=== PATIENT | female | born 1970 | race African-American/Black ===

== ENCOUNTER 2016-11-06 05:09 | Inpatient (IN) | payer OTHER ==
[2016-11-01 11:50] VITALS: BMI 23.7
[~2016-11-06 05:09] MED LIST: ceFAZolin SODIUM 1 GM VIAL IVPB ONE
[2016-11-06] MEDS ORDERED: INFLUENZA VACCINE 45 MCG/0.5 ML (MDV 16-17) IM ONE (12:54)
[2016-11-06] MEDS ORDERED: ROPIVACAINE HCL 0.5% 30ML VIAL ONE (13:35)
[2016-11-06] MEDS ORDERED: MIDAZOLAM HCL 2 MG/2 ML SINGLE DOSE VIAL ONE (14:08)
[2016-11-06] MEDS ORDERED: ROCURONIUM BROMIDE 50 MG/5 ML VIAL ONE (14:32)
[2016-11-06] MEDS ORDERED: PROPOFOL 20 ML ONE (14:32)
[2016-11-06] MEDS ORDERED: ceFAZolin SODIUM 1 GM VIAL IVPB ONE (14:35)
[2016-11-06] MEDS ORDERED: ceFAZolin SODIUM 1 GM VIAL ONE (14:37)
[2016-11-06] MEDS ORDERED: DEXAMETHASONE SOD PHOSPHATE 4 MG/1 ML VIAL ONE (15:21)
[2016-11-06] MEDS ORDERED: GLYCOPYRROLATE 0.2 MG/1 ML VIAL ONE (15:36)
[2016-11-06] MEDS ORDERED: NEOSTIGMINE METHYLSULFATE 0.5 MG/ML - 10 ML MDV ONE (15:36)
[2016-11-06] MEDS ORDERED: ONDANSETRON 4 MG/2 ML VIAL IVPUSH PRN (16:07)
[2016-11-06] MEDS ORDERED: HYDROmorphone HCL CARPU-JECT 2 MG/1 ML DISP.SYRIN ONE (16:16)
[2016-11-06] MEDS: HYDROmorphone HCL CARPU-JECT 1 MG/1 ML DISP.SYRIN IVPUSH PRN ×4 (16:19→16:49)
[2016-11-06] MEDS ORDERED: LACTATED RINGERS SOLUTION 1,000 ML IV SCH (16:45)
[2016-11-06] MEDS: HYDROmorphone *PCA* 10MG/50ML DISP.SYRIN PCA SCH ×2 (16:55→22:01)
--- NOTE | 2016-11-06 17:43 | OP ---
DATE OF OPERATION: 11/06/2016 PREOPERATIVE DIAGNOSES: Cancer in situ of cervix, fibroid, and anemia. POSTOPERATIVE DIAGNOSES: Cancer in situ of cervix, fibroid, and anemia. SURGEON: Keyana Quijano MD [employer] SUPERVISOR: Rich Diego MD OPERATION: Laparotomy, total abdominal hysterectomy, and bilateral salpingo-oophorectomy. While patient was prepped and draped under general anesthesia, via Pfannenstiel incision abdominal cavity was entered layer by layer. Bowel was packed and uterus was pulled out and hysterectomy was in that manner both round ligaments were ligated and then both infundibulopelvics were, with the help of the suture ligature and number 0 Vicryl, other ligation was done. Then step by step, both right and left uterine arteries were ligated, and then uterosacral and cardinal ligaments were . Uterus, cervix and both ovaries and tubes--ovaries were removed on the basis of patient's request because patient insisted to remove the ovaries and tubes, and for that reason it was done also. During the surgery, Dr. Diego was helping and observing. After uterus and ovaries were removed and sent to Pathology, the vault of the vagina was closed in 2 layers. The other elements of the abdomen were evaluated. There was no pathological finding. Peritoneum was pulled down and peritoneum and fascia were closed with 0 Vicryl and skin was closed with V-Loc number 3. Estimated blood loss was 100 mL but this patient, because her hemoglobin was 9 and she had history of anemia, was advised to give her 1 unit of blood in recovery room. Patient tolerated the procedure, was sent to recovery room in good condition. Marita [id number]
[2016-11-06 20:07] LABS: MCH 22.3 pg (25.7-33.7); MCHC 30.5 g/dl (32.0-36.0); MEAN CELL VOLUME 72.9 fl (80-96); MEAN PLT VOLUME 7.9 fl (7.5-11.1); PLATELET COUNT 302 K/MM3 (134-434); RDW 19.8 % (11.6-15.6); WHITE BLOOD COUNT 14.8 K/mm3 (4.0-10.0)
[2016-11-06 21:39] LABS: ANISOCYTOSIS 1+; HYPOCHROMIA 1+; PLATELET ESTIMATE ADEQUATE (NORMAL); POLYCHROMASIA FEW
[2016-11-06] MEDS: CEFAZOLIN 1 GM/D5W 50 ML IVPB SCH (23:09)
[2016-11-06] MEDS: LACTATED RINGERS SOLUTION 1,000 ML IV SCH (23:11)
[2016-11-07] MEDS ORDERED: ONDANSETRON 4 MG/2 ML VIAL ONE (02:15)
[2016-11-07] MEDS: CEFAZOLIN 1 GM/D5W 50 ML IVPB SCH (06:20)
[2016-11-07] MEDS ORDERED: ONDANSETRON 4 MG/2 ML VIAL IVPB PRN (06:34)
[2016-11-07] MEDS: IBUPROFEN 800 MG/8 ML IJ IVPB PRN ×4 (06:52→22:35)
[2016-11-07] MEDS: LACTATED RINGERS SOLUTION 1,000 ML IV SCH ×2 (09:30→21:24)
[2016-11-07] MEDS ORDERED: VACCINE 60 MCG/0.5 ML (P/F DISP.SYRIN 16-17) IM ONE (10:00)
--- NOTE | 2016-11-07 11:26 | PN ---
Progress Note (short form) - Note Progress Note: Anesthesia Post op/Pain Pt seen and examined S:Alert and awake. Comfortable O: CBC, BMP 11/06/16 19:30 11/07/16 06:15 Vital Signs Temperature 99.8 F H 11/07/16 07:45 Pulse Rate 77 11/07/16 07:45 Respiratory Rate 18 11/07/16 07:45 Blood Pressure 131/73 11/07/16 07:45 O2 Sat by Pulse Oximetry (%) 97 11/07/16 07:45 A/P s/p Hysterectomy BSO uses ANTHROPOLOGY PROFESSOR but frequency low Advised to use ANTHROPOLOGY PROFESSOR as needed No apparent anesthesia related complications Bryson Sanchez MD
[2016-11-07] MEDS ORDERED: PCA PUMP KEY 1 EACH EACH ONE (12:09)
[2016-11-07] MEDS: SIMETHICONE 80 MG TAB.CHEW (FP) PO PRN (17:08)
[2016-11-08] MEDS: LACTATED RINGERS SOLUTION 1,000 ML IV SCH (06:38)
--- NOTE | 2016-11-08 08:36 | PN ---
Progress Note (short form) - Note Progress Note: Pot op day#2.Patient stable and has little pain for which she is on medication.CRIB CLERK was DC yesterday.No any anesthesia related problem.Patient DC from the anesthesia care.
[2016-11-08] MEDS: SIMETHICONE 80 MG TAB.CHEW (FP) PO PRN ×2 (08:44→17:05)
[2016-11-08] MEDS ORDERED: BISACODYL 10 MG SUPP.RECT PR ONE (09:00)
[2016-11-08] MEDS: ACETAMINOPHEN 325 MG TABLET (FP) PO PRN ×2 (10:48→17:02)
[2016-11-08] MEDS: IBUPROFEN 600 MG TABLET (FP) PO PRN ×2 (10:48→17:03)
[2016-11-08] MEDS ORDERED: POLYETHYLENE GLYCOL 3350 119 GM BTL PO ONE (15:40)
[2016-11-08 16:40] VITALS: PULSE 64
[2016-11-08 18:32] VITALS: BP 126/64; TEMP 99
--- NOTE | 2016-11-09 15:11 | PATH ---
Surgical Pathology Report Patient Name: SHANNON ASHLEY [facility]. Rec. #: [id number] /Age/Gender: 1970 (Age: 45) / F Account: [id number] Location: [facility] OBS/NURSING TECHN Taken: 11/06/2016 Received: 11/07/2016 Reported: 11/09/2016 Physicians: Marita Hernandez Specimen(s) Received A: UTERUS, CERVIX, BILATERAL FALLOPIAN TUBES & OVARIES B: VAGINAL MARGIN Clinical History Carcinoma in situ of cervix/endometrium, fibroids Final Diagnosis A. UTERUS, CERVIX, BILATERAL FALLOPIAN TUBES AND OVARIES, TOTAL ABDOMINAL HYSTERECTOMY, BILATERAL SALPINGO-OOPHORECTOMY: CERVIX: HIGH GRADE SQUAMOUS INTRAEPITHELIAL LESION (CERVICAL INTRAEPITHELIAL NEOPLASIA 3 /ALYSA 3 /CARCINOMA IN SITU) WITH GLANDULAR INVOLVEMENTIN 12-3:00 QUADRANT; ECTOCERVICAL RESECTION MARGIN IS NEGATIVE FOR ALYSA 3. ENDOMETRIUM: DYSSYNCHRONOUS AND FOCALLY DISORDERD PROLIFERATIVE WITH FOCAL STROMAL BREAKDOWN CHANGES. MYOMETRIUM: EXTENSIVE ADENOMYOSIS; LEIOMYOMATA (LARGEST 1.1 CM). UTERINE SEROSA: WITHOUT SIGNIFICANT PATHOLOGIC CHANGES. RIGHT AND LEFT PARAMETRIA: FOCAL INVOLVEMENT BY ENDOMETRIOSIS OF LEFT PRAMETRIUM. LEFT FALLOPIAN TUBE: FOCAL TUBO-OVARIAN ADHESIONS. LEFT OVARY: HEMORRHAGIC CORPUS LUTEUM CYST; TUBO-OVARIAN ADHESIONS. RIGHT FALLOPIAN TUBE: TUBO-OVARIAN ADHESIONS. RIGHT OVARY: HEMORRHAGIC CORPUS LUTEUM CYST; TUBO-OVARIAN ADHESIONS. Comment: Carcinoma in situ is seen in 12-3:00 quadrant with glandular involvement. PAS stain demonstrates preserved basement membranes around foci of dysplasia; no invasion is identified. B. VAGINAL MARGIN, EXCISION: BENIGN SQUAMOUS MUCOSA; NO DYSPLASIA IDENTIFIED. Note: The case was discussed with Dr. Quijano on 11/08/16. Electronically Signed Issa Wilks M.D. Gross Description A. Received in formalin, labeled "uterus, cervix, bilateral fallopian tubes/ovaries" is a 214 g hysterectomy specimen including a uterus, attached cervix and bilateral attached fallopian tubes and ovaries. The specimen measures 12 cm from superior to inferior, 7.5 cm from left to right and 6.5 cm from anterior to posterior. The serosa is valerio-pink and smooth. The attached cervix measures 2.8 cm in length and averages 2.6 cm in diameter. The ectocervix is pink-valerio, smooth and glistening. The endocervix is grossly unremarkable. The endometrial cavity measures 4.5 cm in length and 2.5 cm from cornu to cornu. The endometrium is valerio-red and measures up to 0.3 cm in thickness. There are multiple intramural nodules present, measuring up to 1.1 cm in greatest dimension. The cut surface of the nodules is valerio, firm to rubbery and displays whorled architecture. No areas of hemorrhage or necrosis are identified. The remaining myometrium is valerio-pink and measures up to 3.1 cm in thickness. The left fimbriated fallopian tube measures 5 cm in length and appears previously ligated. The outer surface is hernández purple with tubal ovarian adhesions. Sectioning reveals an unremarkable lumen. The left ovary measures 3.5 x 2.4 x 2.0 cm. The outer surface is hernández-purple. Sectioning reveals a 2.8 cm greatest dimension hemorrhagic cyst. The remaining ovarian parenchyma is valerio and unremarkable. The right fimbriated fallopian tube measures 5.5 cm in length and appears previously ligated. The outer surface is hernández-purple with tubal ovarian adhesions. Sectioning reveals an unremarkable lumen. The right ovary measures 3.4 x 2.5 x 2.0 cm. The outer surface is hernández-purple. Sectioning reveals a 2.7 cm in greatest dimension focally hemorrhagic cyst. The remaining ovarian parenchyma is unremarkable. Compensation Expert sections are submitted in 29 cassettes as follows: 5-20-ujdfgjnw submitted cervix sequentially from 1:00 to 12:00; 13-anterior lower uterine segment; 14-posterior lower uterine segment; 15-left parametrium; 16-right parametrium; 35-06-lzyeomhz endomyometrium; 10-87-dvzjjamxq endomyometrium; 21-intramural nodules; 22-left fallopian tube fimbria; 52-jfkah-hjxrclgn of left fallopian tube; 24-left ovarian cyst; 25-left ovary; 26-right fallopian tube fimbria; 24-snbcc-fmjmcihs of right fallopian tube; 28-right ovarian cyst; 29-right ovary. B. Received in formalin, labeled "vaginal margin" is a 1.7 x 0.8 x 0.6 cm valerio, irregular, unoriented portion of soft tissue. The specimen is inked green and serially sectioned. The specimen is entirely submitted in 2 cassettes. DL/11/07/2016 saudi11/07/2016
== END 2016-11-08 18:39 | disposition home or self-care (01) | DRG 741 ==
LOC: JSAMEDAYSX 05:09 → J3W 18:00
PROVIDERS: ADMIT Obstetrics & Gynecology; ATTEND Obstetrics & Gynecology
PROC: 0UTC0ZZ Resection of Cervix, Open Approach (ICD-10-PCS; 2016-11-06)
PROC: 0UT70ZZ Resection of Bilateral Fallopian Tubes, Open Approach (ICD-10-PCS; 2016-11-06)
PROC: 0UT20ZZ Resection of Bilateral Ovaries, Open Approach (ICD-10-PCS; 2016-11-06)
PROC: 30233N1 Transfusion of Nonautologous Red Blood Cells into Peripheral Vein, Percutaneous Approach (ICD-10-PCS; 2016-11-06)
PROC: 0UT90ZZ Resection of Uterus, Open Approach (ICD-10-PCS; principal; 2016-11-06 14:00)
DX: D06.9 Carcinoma in situ of cervix, unspecified (principal); D25.9 Leiomyoma of uterus, unspecified; D64.9 Anemia, unspecified
CPT/HCPCS: 36415; 36430; 80051; 84703; 85027; 88305-TC; 88309-TC; 94010; 94760; P9038; P9058

== ENCOUNTER 2017-05-15 11:49 | Emergency (ER) | payer OTHER ==
[2017-05-15 11:56] VITALS: TEMP 98.1; BMI 31.4
--- NOTE | 2017-05-15 12:39 | PDOC ---
History of Present Illness - History of Present Illness Initial Comments: 05/15/17 15:32 The patient is a 46 year old female, with a significant past medical history of ""slowed speech"" (x2 months), who presents to the emergency department with missing gaps of memory for 2 weeks. She states she was driving to work 2 weeks ago when she got off at the exit and ended up in a different town, however, can not recall anything in between. She reports putting her work address into the GPS and getting to work. She states she was able to perform her work tasks, but states a second incident occurred on her way home. She reports having an appointment with her PCP today, however, he was not in the office. She states she was evaluated by Dr. Banegas in the office and referred to the ED. She reports having an MRI about 2 months ago, as per Dr. Rendon referral, for change in speech. The patient states she has been ""putting things away at home and not remembering where."" She denies chest pain, shortness of breath, headache and dizziness. She denies fever, chills, nausea, vomit, diarrhea and constipation. She denies dysuria, frequency, urgency and hematuria. Pt denies any focal weakness, numbness/ tingling, vision changes, neck pain, back pain. Allergies: NKDA PCP - Dr. Kris Brower <Carolyn Velasquez - Last Filed: 05/15/17 16:20> <Bruce Gallegos - Last Filed: 05/17/17 07:44> - General Chief Complaint: Altered Mental Status Stated Complaint: (PCP SENT) Time Seen by Provider: 05/15/17 12:08 Past History <Carolyn Velasquez - Last Filed: 05/15/17 16:20> - Past Medical History Anemia: Yes Asthma: No Cancer: Yes (CERVICAL/ENDOMETRIAL) Cardiac Disorders: No CVA: No COPD: No CHF: No Dementia: No Diabetes: No GI Disorders: Yes (IBS) Disorders: No HTN: No Hypercholesterolemia: No Liver Disease: No Seizures: No Thyroid Disease: No - Surgical History Abdominal Surgery: Yes (tubal ligation) - Immunization History Td Vaccination: (unknown) Immunization Up to Date: Yes - Psycho/Social/Smoking Cessation Hx Anxiety: No Suicidal Ideation: No Smoking Status: No Smoking History: Never smoked Years of Tobacco Use: 0 Number of Cigarettes Smoked Daily: 0 Cigars Per Day: 0 Hx Alcohol Use: No Drug/Substance Use Hx: No Substance Use Type: None Hx Substance Use Treatment: No <Bruce Gallegos - Last Filed: 05/17/17 07:44> - Past Medical History Allergies/Adverse Reactions: Allergies Allergy/AdvReac Type Severity Reaction Status Date / Time No Known Drug Allergies Allergy Verified 05/15/17 11:57 Home Medications: Ambulatory Orders Ferrous Sulfate 325 mg PO DAILY 11/01/16 Multivitamin [Poly-Vitamin] 1 tab PO DAILY 11/01/16 Review of Systems - Review of Systems Able to Perform ROS?: Yes Comments:: 05/15/17 15:32 CONSTITUTIONAL: No reported: Fever, Chills, Diaphoresis, Generalized Weakness, Malaise, Loss of Appetite HEENT: No reported: Rhinorrhea, Nasal Congestion, Throat Pain, Throat Swelling, Difficulty Swallowing, Mouth Swelling, Ear Pain, Eye Pain, Visual Changes CARDIOVASCULAR: No reported: Chest Pain, Syncope, Palpitations, Irregular Heart Rate, Lightheadedness, Peripheral Edema RESPIRATORY: No reported: Cough, Shortness of Breath, SOB with Exertion, Orthopnea, Wheezing , Stridor, Hemoptysis GASTROINTESTINAL: No reported: Abdominal pain, Abdominal Distension, Nausea, Vomiting, Diarrhea, Constipation, Melena, Hematochezia GENITOURINARY: No reported: Dysuria, Frequency, Urgency, Hesitancy, Flank Pain, Genital Pain MUSCULOSKELETAL: No reported: Myalgia, Arthralgia, Joint Swelling, Back pain, Neck Pain SKIN: No reported: Rash, Itching, Pallor HEMEATOLOGIC/IMMUNOLOGIC: No reported: Easy Bleeding, Easy Bruising, Lymphadenopathy, Frequent infections ENDOCRINE: No reported: Unexplained Weight Gain, Unexplained Weight Loss, Heat Intolerance , Cold Intolerance NEUROLOGIC: (+) memory loss and dizziness. No reported: Headache, Focal Weakness, Paresthesias, Lightheadedness, Unsteady Gait, Seizure, Incontinence PSYCHIATRIC: No reported: Anxiety, Depression <Carolyn Velasquez - Last Filed: 05/15/17 16:20> *Physical Exam - Vital Signs Last Vital Signs Temp Pulse Resp BP Pulse Ox 98.1 F 72 20 128/91 98 05/15/17 11:52 05/15/17 11:52 05/15/17 11:52 05/15/17 11:52 05/15/17 11:52 - Physical Exam Comments: 05/15/17 15:32 GENERAL: The patient is awake, alert, and fully oriented, Nontoxic - in no acute distress. HEAD: Normocephalic, atraumatic. EYES: extraocular movements intact, sclera anicteric, conjunctiva clear. ENT: Normal voice, Moist mucous membranes. NECK: Normal range of motion, supple LUNGS: Breath sounds equal, clear to auscultation bilaterally. No wheezes, no rhonchi, no rales. HEART: Regular rate and rhythm, without murmur, rub or gallop. ABDOMEN: Soft, nontender, normoactive bowel sounds. No guarding, no rebound.No CVA tenderness EXTREMITIES: Normal range of motion, no edema. No clubbing or cyanosis. No cords, erythema, or tenderness. PSYCH: Normal mood, flat affect. SKIN: Warm, Dry, normal turgor, NEURO: Mental status: The patient is oriented x3. Cranial nerves: Cranial nerves II through XII are intact Motor: The upper extremities are 5 over 5 in all muscle groups. The lower extremities are 5 over 5 in all muscle groups. Negative pronator drift Sensation: Sensation is intact to light touch throughout. romberg negative Cerebellar: Bszwxv-abahys-vdpm is normal in both upper extremities. Gait: Normal. <Carolyn Velasquez - Last Filed: 05/15/17 16:20> - Vital Signs Last Vital Signs Temp Pulse Resp BP Pulse Ox 98.1 F 72 20 128/91 98 05/15/17 11:52 05/15/17 11:52 05/15/17 11:52 05/15/17 11:52 05/15/17 11:52 <Bruce Gallegos - Last Filed: 05/17/17 07:44> Heart Score/ECG Review - ECG Impressions Comment:: 05/15/17 17:47 Twelve-lead EKG was performed and reviewed by me. There is normal sinus rhythm with a normal rate, rate of 68. The axis is normal. The intervals are normal. There is normal R wave progression There are no ST or T wave abnormalities. Impression: Normal twelve-lead EKG <Bruce Gallegos - Last Filed: 05/17/17 07:44> ED Treatment Course - LABORATORY CBC & Chemistry Diagram: 05/15/17 12:55 05/15/17 12:54 - ADDITIONAL ORDERS Additional order review: Laboratory Results 05/15/17 12:54 Sodium 139 Potassium 4.5 Chloride 107 Carbon Dioxide 27 Anion Gap 5 L BUN 14 D Creatinine 0.7 Creat Clearance w eGFR > 60 Random Glucose 83 Calcium 10.0 Total Bilirubin 0.6 AST 14 L ALT 11 L Alkaline Phosphatase 90 D Total Protein 8.2 Albumin 3.7 05/15/17 12:55 RBC 4.78 MCV 80.8 MCHC 31.9 L RDW 15.5 D MPV 8.7 D Neutrophils % 60.6 Lymphocytes % 30.4 Monocytes % 6.4 Eosinophils % 1.7 Basophils % 0.9 <Carolyn Velasquez - Last Filed: 05/15/17 16:20> - LABORATORY CBC & Chemistry Diagram: 05/15/17 12:55 05/15/17 12:54 <Bruce Gallegos - Last Filed: 05/17/17 07:44> Medical Decision Making - Medical Decision Making 05/15/17 15:33 Dr. Bijal Banegas was paged at the office at 14:55 requesting a call back for doctor to doctor consult. Dr. Banegas was paged a second time at 15:10. Dr. Banegas returned the call at 15:30 and the patient's case was discussed. 05/15/17 16:10 Patient has an outstanding appointment with Dr. Yoon. In an attempt to expedite her follow-up appointment, the office was called, however, the office is unable to reschedule the appointment sooner. Dr. Osborn, Neurologist on-call, was called at 16:20 and the patient's case was discussed. Dr. Osborn agrees to see the patient in the office on Saturday, , at 2:00PM. <Carolyn Velasquez - Last Filed: 05/15/17 16:20> - Medical Decision Making 05/15/17 13:05 46y F presenting with 2 week period of amnesia/poor short term memory, prior recent history of speech problem and received an MRI as an outpatient for a workup. pt denies any focal neurologic complaints including headache, dizziness , vision changes, numbness/tingling/weakness, neck pain, back pain, chest pain, n/v. on exam the pt seems to have a flat affect and otherwise intact neuro exam beside being slow to answer basic questions. will obtain basic blood work and will discuss with PMD possibel TGA? neuro consult 05/15/17 15:03 discussed with the pts son, states the pt ahs been slow in speaking for atleast a year, since she broke up with her , but her memory problems seem new, when he saw her in march, her memory seemed normal. also states pt had a neuro appointment yet but couldnt make it so was cancelled and rescheduled for may. pts labs unremarkable here will d/w PMD will see if we can get an expedited neuro fu 05/15/17 16:[address] osborn will see the pt on saturday at 2pm return precautions were discussed I discussed the physical exam findings, ancillary test results and final diagnoses with the patient. I answered all of the patient's questions. The patient was satisfied with the care received and felt comfortable with the discharge plan and treatment plan. The patient will call their primary care physician within 24 hours to arrange follow-up and will return to the Emergency Department with any new, persistent or worsening symptoms. <Bruce Gallegos - Last Filed: 05/17/17 07:44> *DC/Admit/Observation/Transfer - Attestations Scribe Attestion: 05/15/17 15:33 Documentation prepared by Carolyn Velasquez, acting as medical education coordinator for Bruce Gallegos MD <Carolyn Velasquez - Last Filed: 05/15/17 16:20> - Discharge Dispostion Admit: No <Bruce Gallegos - Last Filed: 05/17/17 07:44> Diagnosis at time of Disposition: Memory changes - Discharge Dispostion Disposition: HOME Condition at time of disposition: Improved - Referrals Referrals: Kris Brower MD [Primary Care Provider] - Mike Osborn MD [Staff Physician] - - Patient Instructions Printed Discharge Instructions: DI for Altered Mental Status Additional Instructions: Return to the emergency department immediately with ANY new, persistent or worsening symptoms. You MUST call and follow up with Dr. Watkins on Saturday at 2pm further evaluation of your symptoms. Results were discussed with you. Please make sure your doctor reviews the results of your emergency evaluation. Print Language: TUVALUAN
[2017-05-15 13:06] LABS: BASOPHIL 0.9 % (0-2.0); EOSINOPHIL 1.7 % (0-4.5); MCH 25.8 pg (25.7-33.7); MCHC 31.9 g/dl (32.0-36.0); MEAN CELL VOLUME 80.8 fl (80-96); MEAN PLT VOLUME 8.7 fl (7.5-11.1); NEUTROPHILS 60.6 % (42.8-82.8); PLATELET COUNT 262 K/MM3 (134-434); RDW 15.5 % (11.6-15.6); WHITE BLOOD COUNT 5.7 K/mm3 (4.0-10.0)
[2017-05-15 13:33] LABS: ALBUMIN 3.7 g/dl (3.4-5.0); ALK PHOS 90 U/L (45-117); ANION GAP 5 (8-16); BILIRUBIN,TOTAL 0.6 mg/dL (0.2-1.0); CO2 27 mmol/L (21-32); CREATININE 0.7 mg/dL (0.55-1.02); GLUCOSE,RANDOM 83 mg/dL (74-106); SGOT/AST 14 U/L (15-37); SGPT/ALT 11 U/L (12-78); TOT PROT 8.2 g/dl (6.4-8.2)
[2017-05-15 15:36] LABS: URINE APPEARANCE CLEAR; URINE BILIRUBIN NEGATIVE (NEGATIVE); URINE BLOOD 1+ (NEGATIVE); URINE COLOR STRAW; URINE GLUCOSE (UA) NEGATIVE (NEGATIVE); URINE KETONE NEGATIVE (NEGATIVE); URINE LEUK ESTERASE NEGATIVE (NEGATIVE); URINE NITRITE NEGATIVE (NEGATIVE); URINE PROTEIN NEGATIVE (NEGATIVE); URINE UROBILINOGEN NEGATIVE mg/dL (0.2-1.0)
[2017-05-15 15:49] LABS: URINE RBC <1 /hpf (0-3); URINE WBC 2 /hpf (3-5)
[2017-05-15 16:07] LABS: URINE MARIJUANA THC NEGATIVE ng/ml (CUTOFF=50)
[2017-05-15 16:50] VITALS: BP 140/86; PULSE 66
--- NOTE | 2017-05-16 16:32 | EKG ---
Test Reason : Blood Pressure : / mmHG Vent. Rate : 063 BPM Atrial Rate : 063 BPM P-R Int : 188 ms QRS Dur : 080 ms QT Int : 394 ms P-R-T Axes : 046 013 038 degrees QTc Int : 403 ms NORMAL SINUS RHYTHM NORMAL ECG WHEN COMPARED WITH ECG OF 29-JAN-2012 23:17, QT HAS SHORTENED Confirmed by TRUNG DUNCAN MD ([id number]) on 05/16/2017 4:31:52 PM Referred By: Confirmed By:TRUNG DUNCAN MD
== END 2017-05-15 16:51 | disposition home or self-care (01) ==
LOC: JER 11:49
DX: R41.3 Other amnesia (principal); Z85.41 Personal history of malignant neoplasm of cervix uteri; K58.9 Irritable bowel syndrome, unspecified
CPT/HCPCS: 36415; 70450-TC; 80053; 80307; 81003; 81015; 85025; 93005; 93010; 99284-25

== ENCOUNTER 2018-07-26 17:31 | Emergency (ER) | payer OTHER ==
[2018-07-26 17:36] VITALS: BP 135/86; PULSE 72; TEMP 98.7; BMI 31.4
[2018-07-26] MEDS ORDERED: ONDANSETRON 4 MG TABLET PO ONE (18:01)
[2018-07-26] MEDS ORDERED: MECLIZINE HCL 25 MG TABLET (FP) PO ONE (18:01)
--- NOTE | 2018-07-26 18:06 | PDOC ---
History of Present Illness - General Chief Complaint: Lightheaded Stated Complaint: Lightheaded Time Seen by Provider: 07/26/18 17:49 - History of Present Illness Initial Comments: 07/26/18 18:00 47 yo F with no significant pmh who p/w dizziness. Patient reports 2 weeks of worsening "spinning sensation." Patient reports multiple, unpredictable episodes of transient spinning when at movement. Symptoms resolve with rest. Sensation of moving forward, when parked at red stop lights, and sensation of room spinning when moving head. Nausea and vomiting x 2 yesterday. Absent hematemesis. Symptoms usually resolve with rest. Denies h/o head trauma, CVA/ TIA. Has h/o vertigo treated with Meclizine in past. Patient denies VEGA, vision change, hearing loss, tinnitus, F,C, cough, CP, SOB, urinary complaints, hematuria, BPR, abdominal pain, diarrhea, constipation, lightheadedness, weakness, sensory changes. PMHx: as noted above ROS: as noted SHx: Denies Etoh, tobacco, IVDA Allergies: NKDA. Past History - Past Medical History Allergies/Adverse Reactions: Allergies Allergy/AdvReac Type Severity Reaction Status Date / Time No Known Drug Allergies Allergy Verified 07/26/18 17:33 Home Medications: Ambulatory Orders Multivitamin [Poly-Vitamin] 1 tab PO DAILY 11/01/16 Meclizine HCl 25 mg PO PRN PRN 30 Days #30 tab.chew MDD 2 tab 07/26/18 Anemia: Yes Asthma: No Cancer: Yes (CERVICAL/ENDOMETRIAL) Cardiac Disorders: No CVA: No COPD: No CHF: No DVT: No Dementia: No Diabetes: No GI Disorders: Yes (IBS) Disorders: No HTN: No Hypercholesterolemia: No Liver Disease: No Seizures: No Thyroid Disease: No - Surgical History Abdominal Surgery: Yes (tubal ligation) - Immunization History Td Vaccination: (unknown) Immunization Up to Date: Yes - Suicide/Smoking/Psychosocial Hx Smoking Status: No Smoking History: Never smoked Years of Tobacco Use: 0 Number of Cigarettes Smoked Daily: 0 Cigars Per Day: 0 Information on smoking cessation initiated: No Hx Alcohol Use: No Drug/Substance Use Hx: No Substance Use Type: None Hx Substance Use Treatment: No Cardiac Specific PMH - Complaint Specific PMHX Pacemaker: No Review of Systems - Review of Systems Comments:: 07/26/18 18:09 GENERAL/CONSTITUTIONAL: No fever or chills. No weakness. HEAD, EYES, EARS, NOSE AND THROAT: No change in vision. No ear pain or discharge. No sore throat. CARDIOVASCULAR: No chest pain or shortness of breath RESPIRATORY: No cough, wheezing, or hemoptysis. GASTROINTESTINAL: No nausea, vomiting, diarrhea or constipation. GENITOURINARY: No dysuria, frequency, or change in urination. MUSCULOSKELETAL: No joint or muscle swelling or pain. No neck or back pain. SKIN: No rash NEUROLOGIC: + Vertigo. No headache, loss of consciousness, or change in strength /sensation. ENDOCRINE: No increased thirst. No abnormal weight change HEMATOLOGIC/LYMPHATIC: No anemia, easy bleeding, or history of blood clots. ALLERGIC/IMMUNOLOGIC: No hives or skin allergy. *Physical Exam - Vital Signs Last Vital Signs Temp Pulse Resp BP Pulse Ox 98.7 F 72 18 135/86 100 07/26/18 17:33 07/26/18 17:33 07/26/18 17:33 07/26/18 17:33 07/26/18 17:33 - Physical Exam Comments: 07/26/18 18:10 GENERAL: Awake, alert, and fully oriented, in no acute distress HEAD: No signs of trauma, normocephalic, atraumatic EYES: PERRLA, EOMI, sclera anicteric, conjunctiva clear ENT: Auricles nml to visualization. Hearing grossly normal, nares patent, oropharynx clear without exudates. Moist mucosa NECK: Normal ROM, supple, no lymphadenopathy, JVD, or masses LUNGS: No distress, speaks full sentences, clear to auscultation bilaterally HEART: Regular rate and rhythm, normal S1 and S2, no murmurs, rubs or gallops, peripheral pulses normal and equal bilaterally. EXTREMITIES : Normal inspection, Normal range of motion, no edema. No clubbing or cyanosis. NEUROLOGICAL: Cranial nerves II through XII grossly intact. Normal speech, normal gait, no focal sensorimotor deficits. Neg dysmetria on FTN, HTS. Normal YOSVANY. Neg nystagmus. SKIN: Warm, Dry, normal turgor, no rashes or lesions noted Medical Decision Making - Medical Decision Making 07/26/18 18:06 47 yo F with no significant pmh who p/w dizziness. Dizziness described as transient spinning sensation, improved with rest. VSS, AF., A&OX3. Absent neuro deficits on physical exam. Absent nystagmus. Probable BPPV. Likely peripheral vs. central vertigo. Low suspicion menieres dz., otitis, CVA/TIA, labrynthitis. Ed Course: Meclibabar, Yamelfran 07/26/18 18:11 Meclizine, Zofran sent to pharmacy. 07/26/18 18:14 *DC/Admit/Observation/Transfer Diagnosis at time of Disposition: Vertigo - Discharge Dispostion Condition at time of disposition: Stable Decision to Admit order: No - Referrals Referrals: Kris Brower MD [Primary Care Provider] - Mike Gillespie MD [Staff Physician] - - Patient Instructions Printed Discharge Instructions: DI for Vertigo Additional Instructions: Please return to the emergency department with any new or worsening symptoms or concerns. Please follow up with your primary care physician within 72 hours. Please take Meclizine as needed for symptoms. Follow up with Neurology within one week. - Post Discharge Activity Forms/Work/School Notes: Back to Work - Attestations Physician Attestion: 07/26/18 18:16 I attest to the information provided in this note.
--- NOTE | 2018-07-26 18:15 | PDOC ---
Attending Attestation - Resident Resident Name: AntMikeHaim - ED Attending Attestation I have performed the following: I have examined & evaluated the patient, The case was reviewed & discussed with the resident, I agree w/resident's findings & plan, Exceptions are as noted - HPI HPI: 07/26/18 18:12 47 yo F with no significant pmh who p/w dizziness. Patient reports 2 weeks of worsening vertigo. Patient reports multiple, unpredictable episodes of transient spinning when at movement. Symptoms resolve with rest. Denies h/o head trauma, CVA/TIA. Has h/o vertigo treated with Meclizine in past. Patient denies VEGA, vision change, hearing loss, tinnitus - Physicial Exam PE: 07/26/18 18:13 GENERAL: The patient is in no acute distress. HEAD: Normal EYES: PERRLA, EOMI, no nystagmus LUNGS: Breath sounds equal, clear to auscultation bilaterally. No wheezes, and no crackles. HEART:Regular rate and rhythm, normal S1 and S2 without murmur, rub or gallop. ABDOMEN: Soft, nontender, EXTREMITIES: Normal range of motion NEUROLOGICAL: Cranial nerves II through XII grossly intact. Normal speech. No focal neurological deficits. - Medical Decision Making 07/26/18 18:14 47 yo F presenting to the ER with BPPV Neurological examination nml Pt has had these symptoms in the past, has not followed up Ran out of meclizine Will give meclizine now Will re assess D/c with meclizine
[2018-07-26] MEDS ORDERED: MECLIZINE HCL 25 MG TABLET (FP) ONE (18:28)
[2018-07-26] MEDS ORDERED: ONDANSETRON *ODT* 4 MG TABLET ONE (18:29)
== END 2018-07-26 18:33 | disposition home or self-care (01) ==
LOC: JER 17:31
DX: R42 Dizziness and giddiness (principal)
CPT/HCPCS: 99282-25

== ENCOUNTER 2018-12-17 14:21 | Emergency (ER) | payer OTHER ==
[2018-12-17 14:35] VITALS: BMI 30.7
[2018-12-17] MEDS ORDERED: ACETAMINOPHEN 1000 MG/100 ML VIAL (NON FORMULARY) IVPB ONE (16:37)
[2018-12-17 17:00] LABS: BASO % 0.3 % (0-2.0); EOS % 0.7 % (0-4.5); HEMATOCRIT 35.5 % (32.4-45.2); HEMOGLOBIN 12.2 GM/dL (10.7-15.3); LYMPH % 25.2 % (8-40); MCH 27.8 pg (25.7-33.7); MCHC 34.2 g/dl (32.0-36.0); MEAN PLT VOLUME 8.7 fl (7.5-11.1); MONO % 5.2 % (3.8-10.2); NEUT % 68.6 % (42.8-82.8); PLATELET COUNT 238 K/MM3 (134-434); RBC 4.39 M/mm3 (3.60-5.2); RDW 14.9 % (11.6-15.6)
[2018-12-17] MEDS ORDERED: ACETAMINOPHEN INJECTION 100 ML IVPB ONE (17:17)
--- NOTE | 2018-12-17 17:20 | PDOC ---
History of Present Illness - General Chief Complaint: Palpitations Stated Complaint: SICK Time Seen by Provider: 12/17/18 16:08 - History of Present Illness Initial Comments: 48yo F with PMH of hysterectomy presenting with palpitations. Patient states this has been going on since September. She describes it as her "heart beating very quickly." While there are some days when it does not occur, it has happened more frequently such that she decided to come in and it has occurred twice today lasting between 5-10 minutes for each episode. Patient does not know what makes it better or worse and does not note an obvious correlation with exertion. She also reports right arm pain extending from her upper arm to her shoulder that started on Saturday. Denies injury to that area or heavy lifting. Pain is exacerbated with movement of the arm such as lifting it above her shoulder. No diaphoresis, nausea, or vomiting. No personal or family history of SD. She has never seen a manager council. No hemoptysis, no recent surgical history, no recent immobilization, no hormone use, no history of DVT or PE. No fevers , chills, or abdominal pain. Past History - Past Medical History Allergies/Adverse Reactions: Allergies Allergy/AdvReac Type Severity Reaction Status Date / Time No Known Drug Allergies Allergy Verified 12/17/18 14:31 Home Medications: Ambulatory Orders NK [No Known Home Medication] 12/17/18 Anemia: Yes Asthma: No Cancer: Yes (CERVICAL/ENDOMETRIAL) Cardiac Disorders: No CVA: No COPD: No CHF: No DVT: No Dementia: No Diabetes: No GI Disorders: Yes (IBS) Disorders: No HTN: No Hypercholesterolemia: No Liver Disease: No Seizures: No Thyroid Disease: No - Surgical History Abdominal Surgery: Yes (tubal ligation) - Immunization History Td Vaccination: (unknown) Immunization Up to Date: Yes - Suicide/Smoking/Psychosocial Hx Smoking Status: No Smoking History: Never smoked Years of Tobacco Use: 0 Number of Cigarettes Smoked Daily: 0 Cigars Per Day: 0 Hx Alcohol Use: Yes Drug/Substance Use Hx: No Substance Use Type: None Hx Substance Use Treatment: No Review of Systems - Review of Systems Comments:: Constitutional: no fever, no chills HEENT: no throat pain, no dysphagia Cardiovascular: no chest pain, +palpitations Respiratory: no cough, no shortness of breath Gastrointestinal: no abdominal pain, no nausea Genitourinary: no dysuria, no frequency Musculoskeletal: no decreased mobility, +R. arm pain Skin: no rash, no itching Neurologic: no headache, no dizziness *Physical Exam - Vital Signs Last Vital Signs Temp Pulse Resp BP Pulse Ox 97.8 F 83 18 141/73 98 12/17/18 14:31 12/17/18 14:31 12/17/18 14:31 12/17/18 14:31 12/17/18 14:31 - Physical Exam Comments: General: Awake, alert, and fully oriented, in no acute distress Head: No signs of trauma Eyes: EOMI, sclera anicteric ENT: Moist mucus membranes Neck: Normal ROM, supple Lungs: Lungs clear, Normal breath sounds Cardio: Regular rate and rhythm, S1 and S2 present, no murmurs/rubs/gallops Abdomen: Soft, nontender. No guarding, no rebound, no masses Extremities: Normal range of motion, Distal pulses present, Tender to palpation of R. arm extending to shoulder, pain reproduced with movement of RUE above head , no rashes or lesions noted SKIN: Warm, Dry, normal turgor Neurologic: Cranial nerves II through XII grossly intact. Normal speech Moderate Sedation - Procedure Monitoring Vital Signs: Procedure Monitoring Vital Signs Temperature 97.8 F 12/17/18 14:31 Pulse Rate 83 12/17/18 14:31 Respiratory Rate 18 12/17/18 14:31 Blood Pressure 141/73 12/17/18 14:31 O2 Sat by Pulse Oximetry (%) 98 12/17/18 14:31 ED Treatment Course - LABORATORY CBC & Chemistry Diagram: 12/17/18 16:39 12/17/18 16:39 - RADIOLOGY Radiology Studies Ordered: Category Date Time Status CHEST PA & LAT [RAD] Stat Radiology 12/17/18 16:37 Ordered Medical Decision Making - Medical Decision Making 48yo F with PMH of hysterectomy presenting with palpitations. DDX including but not limited to thyroid disorder, ACS, PE, anemia, arrhythmia, electrolyte abnormality First tpn negative TSH within normal limits No leukocytosis or anemia Patient without PE risk factors, so low suspicion for PE at this time Paged patient's primary care physician, Dr. Parker. Discussed case with Dr. Oreilly who is covering for him and agrees with plan for close follow-up. Instructed to call [phone] to schedule an appointment for the patient. Called and made an appointment for patient to follow-up on Saturday. 12/17/18 18:30 CXR negative Second tpn negative Pain improved with Ofirmev 12/17/18 19:40 Discharged *DC/Admit/Observation/Transfer Diagnosis at time of Disposition: Palpitations - Discharge Dispostion Disposition: HOME Condition at time of disposition: Stable - Referrals Referrals: Brant Parker MD [Primary Care Provider] - - Patient Instructions Printed Discharge Instructions: DI for Palpitations Additional Instructions: You came into the ED for chest pain. We performed an blood work, an EKG, and an Xray which were normal. Follow-up with your primary care physician, Dr. Parker, to discuss this ED visit and to further evaluate your chest pain. We scheduled you for an appointment on Saturday12/22/18 at 1:45pm at [address] [place] [address]. You can take [id number] tylenol for pain. Follow the instructions on the medication bottle. Call for emergency medicine services or go to the emergency room right away if you have symptoms of a heart attack, including: Chest pain, which may feel like a crushing weight A sense of fullness, squeezing, or pressure in the chest Rapid, irregular heartbeat Pain, tingling or numbness in the left shoulder and arm, the neck or jaw, or the right arm Sweating Nausea or vomiting Lightheadedness, weakness, or fainting Shortness of breath If you think you have an emergency, call for medical help right away. - Post Discharge Activity Forms/Work/School Notes: Back to Work
[2018-12-17 17:28] VITALS: BP 136/96; TEMP 98
[2018-12-17 17:43] LABS: ALBUMIN 3.3 g/dl (3.4-5.0); ALK PHOS 90 U/L (45-117); ANION GAP 6 MMOL/L (8-16); BILIRUBIN,TOTAL 0.4 mg/dL (0.2-1); BLOOD UREA NITROGEN 11 mg/dL (7-18); CALCIUM 8.7 mg/dL (8.5-10.1); CHLORIDE 107 mmol/L (98-107); CO2 27 mmol/L (21-32); CREATININE 0.7 mg/dL (0.55-1.3); GLUCOSE,RANDOM 74 mg/dL (74-106); POTASSIUM 3.8 mmol/L (3.5-5.1); SGOT/AST 11 U/L (15-37); SGPT/ALT 11 U/L (13-61); SODIUM 141 mmol/L (136-145); TOT PROT 7.3 g/dl (6.4-8.2)
--- NOTE | 2018-12-17 18:23 | PDOC ---
Attending Attestation - Resident Resident Name: LakshmiKinzaBijal - ED Attending Attestation I have performed the following: I have examined & evaluated the patient, The case was reviewed & discussed with the resident, I agree w/resident's findings & plan, Exceptions are as noted - HPI HPI: 12/17/18 18:18 48-year-old female no significant past medical history here today complaining of intermittent palpitations in addition right arm pain. Patient states that over the last 2 weeks she has intermittent episodes of palpitations. Feels like her heart is racing at times. She reports right-sided arm pain for the last 3 days states she was visiting with her knees suddenly noticed right upper arm pain pain is worse with elevating her arm and movement hasn't taking anything for her pain. 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 No history of thyroid abnormalities no leg swelling denies caffeine use or other supplements - Physicial Exam PE: 12/17/18 18:21 Awake alert no acute distress lungs are clear bilaterally heart is regular without any murmurs rubs or gallops abdomen is soft and nontender skin is warm and dry extremities are without edema tenderness neurologically the patient is alert and oriented 3 moving all 4 extremities speech is clear. right arm is ttp upper arm. pain with abduction to 90, no swelling. 2 + radial/ ulnar pulses. from at elbow and wrist. 12/17/18 18:23 - Medical Decision Making 12/17/18 18:21 48-year-old female here with complaints of palpitations for 2 weeks. Increased frequency today. Patient had 2 episodes at rest each lasting 10 minutes which resolved spontaneous. In addition she has right arm pain which appears to be unrelated is likely muscle skeletal origin are reproducible on exam differential for her palpitations includes hyper or hypothyroid electrolyte abnormalities anemia, dysrhythmia, patient will be evaluated with an EKG troponin and electrolytes and chest x-ray EKG is unremarkable labs are unremarkable. Will discuss with the patient's PCP with absence of chest pain and normal EKG and no episodes here patient could likely be discharged home with close follow-up for likely outpatient Holter monitor. She was recommended to have NSAIDs for her right arm pain 12/17/18 21:27 pt repeate trop negative. called pcp can see in 5 days. for fu. focused ED TTE , indication palpiations eval contractility four views of heart obtained using phased array probe. no pericardial effusion. normal contractility. no rv dilation or strain, impression: normal TTE. pt dc home with fu pcp. Heart Score/ECG Review #1 General ECG Interpretation: Sinus Rhythm, Normal Rate (83), Normal Intervals, No acute ischemic changes Procedures - Bedside Ultrasound Bedside Ultrasound: Cardiac Other: normal tte, see mdm
[2018-12-17 20:36] VITALS: PULSE 72
--- NOTE | 2018-12-18 11:58 | EKG ---
Test Reason : Blood Pressure : / mmHG Vent. Rate : 083 BPM Atrial Rate : 083 BPM P-R Int : 164 ms QRS Dur : 086 ms QT Int : 374 ms P-R-T Axes : 056 019 040 degrees QTc Int : 439 ms NORMAL SINUS RHYTHM NORMAL ECG WHEN COMPARED WITH ECG OF 15-MAY-2017 14:51, NO SIGNIFICANT CHANGE WAS FOUND Confirmed by TRUNG DUNCAN MD ([id number]) on 12/18/2018 11:58:19 AM Referred By: Confirmed By:TRUNG DUNCAN MD
== END 2018-12-17 20:35 | disposition home or self-care (01) ==
LOC: JER 14:21
PROC: 3E033NZ Introduction of Analgesics, Hypnotics, Sedatives into Peripheral Vein, Percutaneous Approach (ICD-10-PCS; principal; 2018-12-17)
DX: R00.2 Palpitations (principal); Z85.41 Personal history of malignant neoplasm of cervix uteri; K58.9 Irritable bowel syndrome, unspecified
CPT/HCPCS: 36415; 71046-TC-FY; 80053; 82550; 84443; 84484; 85025; 93005; 93010; 99285-25; J0131

== ENCOUNTER 2019-12-27 22:28 | Emergency (ER) | payer OTHER ==
[2019-12-27 22:47] VITALS: TEMP 97.9; BMI 35.2
--- NOTE | 2019-12-27 22:51 | PDOC ---
History of Present Illness - General Chief Complaint: Weakness Stated Complaint: SICK/FATIGUE Time Seen by Provider: 12/27/19 22:51 History Source: Patient Exam Limitations: No Limitations - History of Present Illness Initial Comments: 49 year old female with PMH headache disorder (2X a week, resolved with ibuprofen), vertigo, uterine cancer s/p hysterectomy (denied chemo/radiation) presented to ED for chest pain since early this AM. Pt reported her pain is intermittent, no alleviating or aggravating factors, nonmigratory, but associated with intermittent left arm pain. She also complained of a headache to the top of her head, which is usually where her headache is located, feeling similar to prior headaches, she reported she did not take any pain medication for her headache today. She also complained of generalized weakness and nasal congestion. She reported she had a period of shortness of breath this AM associated with her chest pain, lasting less than an hour, resolved now. She denied fever, sore throat, nausea, vomiting, diarrhea, abdominal pain, back pain, numbness, weakness. ROS General: admitted to generalized weakness. denied fever, chills. HEENT: denied sore throat, rhinorrhea, ear pain. Cardiovascular: admitted to chest pain. denied palpitations, syncope, diaphoresis. Respiratory: admitted to shortness of breath. denied cough, sputum production, hemoptysis. Gastrointestinal: denied abdominal pain, nausea, vomiting, diarrhea, constipation, blood in stool. Genitourinary: denied dysuria, increased urinary frequency, hematuria, urinary incontinence, flank pain. Back: denied back pain. Musculoskeletal: denied joint pain, muscle pain, joint swelling. Neurological: denied headache, dizziness, numbness, tingling, weakness. Integumentary: denied rash, laceration, abrasion. Hematologic/Lymphatic: denied bruising or bleeding. PE Constitutional: Well-nourished, Well-developed, appearing stated age. HEENT: head is normocephalic, atraumatic. EOMI. PERRLA. no scalp hematomas. no brewer sign. no raccoon eyes. Neck: supple. Full ROM. Cardiovascular: regular heart rhythm. Normal S1 and S2. no murmurs. no pericardial friction rub. Respiratory: clear to auscultation bilaterally. no crackles, rhonchi or wheezing. no stridor. Gastrointestinal: soft, flat, nontender. normal bowel sounds. no rebound, guarding, or masses. Extremities: peripheral pulses intact and equal. no lower extremity edema noted. no calf tenderness bilaterally. Neurological: CN 2-12 grossly intact. moves all four extremities. Psych: awake, alert, oriented x3. follows commands. answers questions appropriately. Past History - Past Medical History Allergies/Adverse Reactions: Allergies Allergy/AdvReac Type Severity Reaction Status Date / Time No Known Drug Allergies Allergy Verified 12/27/19 22:44 Home Medications: Ambulatory Orders NK [No Known Home Medication] 12/17/18 Cancer: Yes (CERVICAL/ENDOMETRIAL) - Immunization History Td Vaccination: (unknown) Immunization Up to Date: Yes - Psycho Social/Smoking Cessation Hx Smoking Status: No Smoking History: Never smoked Years of Tobacco Use: 0 Number of Cigarettes Smoked Daily: 0 Cigars Per Day: 0 Hx Alcohol Use: No Drug/Substance Use Hx: No Substance Use Type: None Hx Substance Use Treatment: No *Physical Exam - Vital Signs Last Vital Signs Temp Pulse Resp BP Pulse Ox 97.9 F 81 20 135/76 97 12/27/19 22:44 12/27/19 22:44 12/27/19 22:44 12/27/19 22:44 12/27/19 22:44 ED Treatment Course - LABORATORY CBC & Chemistry Diagram: 12/27/19 23:00 12/27/19 23:00 Medical Decision Making - Medical Decision Making 49 year old female with above PMH presented to ED for chest pain, generalized weakness, nasal congestion, left arm pain. Initial Vital Signs Temp Pulse Resp BP Pulse Ox 97.9 F 81 20 135/76 97 12/27/19 22:44 12/27/19 22:44 12/27/19 22:44 12/27/19 22:44 12/27/19 22:44 Afebrile. No tachycardia. No tachypnea. No hypotension. No hypoxia on room air. EKG: sinus rhythm at 78 bpm, no acute ST changes. Labs ordered: CBC, CMP, cardiac profile, lipase, Mg, lipase Imaging ordered: CXR Medications ordered: reglan 10 mg IV once, benadryl 25 mg IV once, tylenol IV, normal saline bolus 1000 cc once, toradol, ASA 324 PO chew once 12/28/19 00:07 Laboratory Last Values WBC 8.8 K/mm3 (4.0-10.0) 12/27/19 23:00 RBC 4.49 M/mm3 (3.60-5.2) 12/27/19 23:00 Hgb 12.1 GM/dL (10.7-15.3) 12/27/19 23:00 Hct 36.7 % (32.4-45.2) 12/27/19 23:00 MCV 81.6 fl (80-96) 12/27/19 23:00 MCH 27.0 pg (25.7-33.7) 12/27/19 23:00 MCHC 33.1 g/dl (32.0-36.0) 12/27/19 23:00 RDW 14.7 % (11.6-15.6) 12/27/19 23:00 Plt Count 292 K/MM3 (134-434) D 12/27/19 23:00 MPV 8.6 fl (7.5-11.1) 12/27/19 23:00 Absolute Neuts (auto) 5.7 K/mm3 (1.5-8.0) 12/27/19 23:00 Neutrophils % 64.9 % (42.8-82.8) 12/27/19 23:00 Lymphocytes % 26.6 % (8-40) 12/27/19 23:00 Monocytes % 6.4 % (3.8-10.2) 12/27/19 23:00 Eosinophils % 1.6 % (0-4.5) D 12/27/19 23:00 Basophils % 0.5 % (0-2.0) 12/27/19 23:00 Nucleated RBC % 0 % (0-0) 12/27/19 23:00 Sodium 141 mmol/L (136-145) 12/27/19 23:00 Potassium 4.9 mmol/L (3.5-5.1) 12/27/19 23:00 Chloride 111 mmol/L (98-107) H 12/27/19 23:00 Carbon Dioxide 24 mmol/L (21-32) 12/27/19 23:00 Anion Gap 6 MMOL/L (8-16) L 12/27/19 23:00 BUN 19.8 mg/dL (7-18) H 12/27/19 23:00 Creatinine 0.9 mg/dL (0.55-1.3) 12/27/19 23:00 Est GFR (CKD-EPI)AfAm 86.41 12/27/19 23:00 Est GFR (CKD-EPI)NonAf 74.55 12/27/19 23:00 Random Glucose 94 mg/dL (74-106) 12/27/19 23:00 Calcium 8.9 mg/dL (8.5-10.1) 12/27/19 23:00 Magnesium 1.7 mg/dL (1.8-2.4) L 12/27/19 23:00 Total Bilirubin 0.4 mg/dL (0.2-1) 12/27/19 23:00 AST 23 U/L (15-37) 12/27/19 23:00 ALT 14 U/L (13-61) 12/27/19 23:00 Alkaline Phosphatase 85 U/L (45-117) 12/27/19 23:00 Creatine Kinase 162 U/L (26-192) 12/27/19 23:00 Troponin I < 0.02 ng/ml (0.00-0.05) 12/27/19 23:00 Total Protein 7.4 g/dl (6.4-8.2) 12/27/19 23:00 Albumin 3.1 g/dl (3.4-5.0) L 12/27/19 23:00 Lipase 142 U/L (73-393) 12/27/19 23:00 No leukocytosis. No anemia. Mild low mag - IVF given Prerenal - IVF given No transaminitis Troponin undetectable Lipase wnl Plan to repeat troponin. 12/28/19 03:09 Repeat troponin undetectable. Pt reported improvement of symptoms. Pt discharged. Discharge - Discharge Information Problems reviewed: Yes Clinical Impression/Diagnosis: Generalized weakness, Chest pain Condition: Stable Disposition: HOME - Admission No - Follow up/Referral Referrals: ON STAFF,NOT [Primary Care Provider] - - Patient Discharge Instructions Additional Instructions: Follow up with your primary care doctor within 3 days regarding your Emergency Room visit. Your care is not complete until you follow up. Take ibuprofen or advil over the counter for your headache. Take as advised on label. Take with food. Increase your water intake. Get at least 8 hours of sleep a night. Exercise 30 minutes a day. Return to the Emergency Department for increasing pain, chest pain, shortness of breath, intractable vomiting, fever>103F, fever>5 days, lightheadedness, palpitations or any other new, worsening or concerning symptoms. - Post Discharge Activity Work/Back to School Note: Back to Work
--- NOTE | 2019-12-27 22:56 | PDOC ---
Documentation entered by Isabell Ron SCRIBE, acting as scribe for Vangie Wells MD. Vangie Wells MD: This documentation has been prepared by the jeaneibe, Isabell Ron SCRIBE, under my direction and personally reviewed by me in its entirety. I confirm that the documentation accurately reflects all work, treatment, procedures, and medical decision making performed by me. Attending Attestation - Resident Resident Name: AissatouMargo - ED Attending Attestation I have performed the following: I have examined & evaluated the patient, The case was reviewed & discussed with the resident, I agree w/resident's findings & plan, Exceptions are as noted - HPI HPI: 12/27/19 23:22 The patient is a 49-year-old female with a past medical history significant for Uterine CA s/p hysterectomy who presents to the emergency department with chest pain and a headache. The patient presents with intermittent episodes of chest pain, since this morning, associated with left arm pain. The patient reports additional complaints of a headache, weakness, and nasal congestion. Denies fever, chills, nausea, or vomiting. - Physicial Exam PE: 12/28/19 00:55 GENERAL: Well-appearing, well-nourished. No apparent distress. HEENT: Normocephalic, atraumatic. PERRL, EOM intact. CARDIOVASCULAR: Normal S1, S2. Regular rate and rhythm. PULMONARY: Clear to auscultation bilaterally. ABDOMEN: Soft, non-distended, non-tender. EXTREMITIES: Normal ROM in all four extremities. No gross deformities. SKIN: Warm, dry. No rash NEUROLOGICAL: No focal neurological deficits. - Medical Decision Making 12/28/19 00:42 First troponin is negative CBC is unremarkable EKG is normal sinus rhythm at 78 bpm, QTC 446 ms, no acute ischemia 12/28/19 00:56 wnwd 49 yo female presents with c/o fatigue , epigastric/lower chest discomfort today. she then had L arm pain 12/28/19 01:09 12/28/19 01:28 At 230 she will have a repeat troponin
[2019-12-27] MEDS ORDERED: METOCLOPRAMIDE HCL INJECTION 10 MG/2 ML VIAL IVPUSH ONE (23:05)
[2019-12-27] MEDS ORDERED: KETOROLAC TROMETHAMINE 30 MG/1 ML VIAL IVPUSH ONE (23:05)
[2019-12-27] MEDS ORDERED: ACETAMINOPHEN 1000 MG/100 ML VIAL (NON FORMULARY) IVPB ONE (23:05)
[2019-12-27] MEDS ORDERED: SODIUM CHLORIDE 1,000 ML IV STA (23:05)
[2019-12-27] MEDS ORDERED: ASPIRIN 81 MG CHEWABLE TABLETS PO ONE (23:07)
[2019-12-27] MEDS ORDERED: KETOROLAC TROMETHAMINE 30 MG/1 ML VIAL ONE (23:24)
[2019-12-27] MEDS ORDERED: ACETAMINOPHEN INJECTION 100 ML IVPB ONE (23:24)
[2019-12-27] MEDS ORDERED: ASPIRIN 81 MG CHEWABLE TABLETS ONE (23:24)
[2019-12-27 23:29] LABS: BASO % 0.5 % (0-2.0); EOS % 1.6 % (0-4.5); HEMATOCRIT 36.7 % (32.4-45.2); HEMOGLOBIN 12.1 GM/dL (10.7-15.3); LYMPH % 26.6 % (8-40); MCHC 33.1 g/dl (32.0-36.0); MEAN CELL VOLUME 81.6 fl (80-96); MEAN PLT VOLUME 8.6 fl (7.5-11.1); MONO % 6.4 % (3.8-10.2); NEUT % 64.9 % (42.8-82.8); PLATELET COUNT 292 K/MM3 (134-434); RBC 4.49 M/mm3 (3.60-5.2); RDW 14.7 % (11.6-15.6); WHITE BLOOD COUNT 8.8 K/mm3 (4.0-10.0)
[2019-12-28 00:04] LABS: ALBUMIN 3.1 g/dl (3.4-5.0); BILIRUBIN,TOTAL 0.4 mg/dL (0.2-1); BLOOD UREA NITROGEN 19.8 mg/dL (7-18); CALCIUM 8.9 mg/dL (8.5-10.1); CREATININE 0.9 mg/dL (0.55-1.3); LIPASE 142 U/L (73-393); MAGNESIUM 1.7 mg/dL (1.8-2.4); POTASSIUM 4.9 mmol/L (3.5-5.1); TOT PROT 7.4 g/dl (6.4-8.2)
[2019-12-28] MEDS ORDERED: METOCLOPRAMIDE HCL INJECTION 10 MG/2 ML VIAL ONE (00:15)
[2019-12-28 03:17] VITALS: BP 132/73; PULSE 81
--- NOTE | 2019-12-28 09:19 | EKG ---
Test Reason : Blood Pressure : / mmHG Vent. Rate : 078 BPM Atrial Rate : 078 BPM P-R Int : 170 ms QRS Dur : 080 ms QT Int : 392 ms P-R-T Axes : 080 016 035 degrees QTc Int : 446 ms POOR DATA QUALITY, INTERPRETATION MAY BE ADVERSELY AFFECTED NORMAL SINUS RHYTHM NORMAL ECG WHEN COMPARED WITH ECG OF 17-DEC-2018 15:02, NO SIGNIFICANT CHANGE WAS FOUND Confirmed by Margo Molina ([id number]) on 12/28/2019 9:18:55 AM Referred By: Confirmed By:Margo Molina
== END 2019-12-28 03:17 | disposition home or self-care (01) ==
LOC: SUPCPDRO 22:28 → JER 22:28
PROC: 3E033NZ Introduction of Analgesics, Hypnotics, Sedatives into Peripheral Vein, Percutaneous Approach (ICD-10-PCS; principal; 2019-12-27)
PROC: 3E033GC Introduction of Other Therapeutic Substance into Peripheral Vein, Percutaneous Approach (ICD-10-PCS; 2019-12-27)
PROC: 3E0333Z Introduction of Anti-inflammatory into Peripheral Vein, Percutaneous Approach (ICD-10-PCS; 2019-12-27)
PROC: 3E033GC Introduction of Other Therapeutic Substance into Peripheral Vein, Percutaneous Approach (ICD-10-PCS; 2019-12-27)
DX: R07.9 Chest pain, unspecified (principal); R53.1 Weakness
CPT/HCPCS: 36415; 71045-TC-FY; 80053; 82550; 82553; 83690; 83735; 84484; 85025; 93005; 93010; 99285-25; J0131; J7030

== ENCOUNTER 2022-02-23 15:15 | Emergency (ER) | payer OTHER ==
[2022-02-23 15:25] VITALS: BP 128/89; PULSE 81; TEMP 98.4; BMI 28.1
== END 2022-02-23 20:45 | disposition home or self-care (01) ==
LOC: JERFT 15:15
DX: M54.2 Cervicalgia (principal); M25.561 Pain in right knee; M25.562 Pain in left knee; V49.40XA Driver injured in collision with unspecified motor vehicles in traffic accident, initial encounter
CPT/HCPCS: 72050-TC-FY; 72100-TC-FY; 73560-TC-LT-FY; 73560-TC-RT-FY; 99284-25

== ENCOUNTER 2022-02-27 16:11 | Emergency (ER) | payer OTHER ==
[2022-02-27 16:28] VITALS: BP 153/91; PULSE 68; TEMP 98.5; BMI 31.1
== END 2022-02-27 22:14 | disposition home or self-care (01) ==
LOC: JERFT 16:11
DX: M54.2 Cervicalgia (principal); M25.561 Pain in right knee
CPT/HCPCS: 72125-TC; 73560-TC-LT-FY; 73560-TC-RT-FY; 73700-TC-RT; 99284-25

== ENCOUNTER 2023-04-28 20:55 | Emergency (ER) | payer SELFPAY ==
[2023-04-28 21:10] VITALS: BP 111/49; PULSE 78; RESP 18; TEMP 98; BMI 29.0
[2023-04-28] MEDS ORDERED: IBUPROFEN 600 MG TABLET (FP) PO ONE ×2 (22:02→22:15)
== END 2023-04-28 23:21 | disposition home or self-care (01) ==
LOC: JER 20:55 → JERFT 20:55
DX: M25.572 Pain in left ankle and joints of left foot (principal); R22.42 Localized swelling, mass and lump, left lower limb; W10.8XXA Fall (on) (from) other stairs and steps, initial encounter
CPT/HCPCS: 73610-TC-LT-FY; 99283-25

== ENCOUNTER 2023-06-05 12:16 | Emergency (ER) | payer BC ==
[2023-06-05 12:45] VITALS: BP 125/67; PULSE 93; RESP 12; TEMP 98.2; BMI 29.5
== END 2023-06-05 14:42 | disposition home or self-care (01) ==
LOC: JERFT 12:16 → JER 12:16 → JERFT 14:42
DX: M25.572 Pain in left ankle and joints of left foot (principal)
CPT/HCPCS: 73610-TC-LT-FY; 99283-25